=== PATIENT | female | born 1990 | race African-American/Black ===

== ENCOUNTER 2016-11-02 09:41 | Emergency (ER) | payer OTHER ==
[~2016-11-02] VITALS: Ht 167.6 cm; Wt 51.0 kg
[~2016-11-02 09:41] MED LIST: ALBU25PO2; ALPR0.2582
[2016-11-02] MEDS ORDERED: ALBUTEROL (0.083%) 2.5MG/3ML NEB HHN ONE (11:45)
[2016-11-02 12:24] LABS: BASOPHILS % 0.5 % (0.0-2.0); EOSINOPHILS % 0.4 % (0.0-5.0); HEMATOCRIT. 37.7 % (36.0-48.0); HEMOGLOBIN. 12.5 g/dL (12.0-16.0); LYMPHOCYTES % 29.6 % (20.0-50.0); MEAN CORPUSCULAR HEMOGLOBIN 29.1 pg (28.0-32.0); MEAN CORPUSCULAR VOLUME 88.1 fL (81.0-99.0); MONOCYTES % 6.6 % (2.0-8.0); NEUTROPHILS % 62.9 % (40.0-76.0); PLATELET 295 x1000/uL (130-400); RED BLOOD CELL COUNT 4.28 mill/uL (4.2-5.4); RED CELL DISTRIBUTION WIDTH 14.7 % (11.6-14.6); WHITE BLOOD COUNT 5.8 x1000/uL (4.5-11.0)
[2016-11-02 12:28] LABS: CHLORIDE 104 mEq/L (98-107); INDEX HEMOLYSI 1 (1-3); INDEX ICTERIC 1 (1-4); INDEX LIPEMIC 1 (1-3)
[2016-11-02 12:30] LABS: INR 1.2; PROTHROMBIN TIME 12.6 sec
[2016-11-02 12:37] LABS: CLARITY URINE CLEAR (CLEAR); COLOR URINE DARK YELLOW (YELLOW); GLUCOSE URINE NEGATIVE (NEGATIVE); KETONES URINE NEGATIVE (NEGATIVE); LEUKOCYTE ESTERASE URINE NEGATIVE (NEGATIVE); NITRITE URINE NEGATIVE (NEGATIVE); OCCULT BLOOD URINE NEGATIVE (NEGATIVE); PH URINE 7.5 (4.5-8.0); PROTEIN URINE NEGATIVE (NEGATIVE); SPECIFIC GRAVITY URINE 1.022 (1.005-1.030); UROBILINOGEN URINE 0.2 E.U./dL (0.2-1.0)
[2016-11-02 12:44] LABS: ANION GAP 12; CALCIUM 8.9 mg/dL (8.5-10.1); CARBON DIOXIDE 25 mEq/L (21-32); UREA NITROGEN BLOOD 5 mg/dL (7-21); eGFR > 60 mL/min (>60)
[2016-11-02 12:52] LABS: B-HCG QUANTITATIVE 84631 mIU/mL (<3)
[2016-11-02 12:57] LABS: *AMPHETAMINES SCREEN URINE NEGATIVE (NEGATIVE); *BARBITURATES SCREEN URINE NEGATIVE (NEGATIVE); *BENZODIAZEPINES SCREEN URINE NEGATIVE (NEGATIVE); *COCAINE SCREEN URINE NEGATIVE (NEGATIVE); ECSTASY MDMA SCREEN URINE NEGATIVE (NEGATIVE); METHADONE URINE SCREEN NEGATIVE (NEGATIVE); OPIATES URINE SCREEN NEGATIVE (NEGATIVE); PHENCYCLIDINE URINE SCREEN NEGATIVE (NEGATIVE)
[2016-11-02 12:59] LABS: CANNABINOID URINE SCREEN PRESUMTIVE POSITIVE (NEGATIVE)
[2016-11-02 13:30] VITALS: BP 122/60
== END 2016-11-02 15:30 | disposition home or self-care (01) ==
LOC: ER 12:15
DX: O20.0 Threatened abortion (principal); Z88.0 Allergy status to penicillin; Z79.899 Other long term (current) drug therapy; J45.909 Unspecified asthma, uncomplicated; Z87.891 Personal history of nicotine dependence; Z91.018 Allergy to other foods; O34.81 Maternal care for other abnormalities of pelvic organs, first trimester; N83.202 Unspecified ovarian cyst, left side; Z3A.09 9 weeks gestation of pregnancy
CPT/HCPCS: 36415; 76801; 76817; 80048; 80305; 81003; 81025; 84702; 85025; 85610; 94640; 99285; J7611; Z7610

== ENCOUNTER 2016-11-11 05:06 | Emergency (ER) | payer OTHER ==
[~2016-11-11] VITALS: Ht 167.6 cm; Wt 53.0 kg
[2016-11-11] MEDS ORDERED: SODIUM CHLORIDE 0.9% 1,000 ML IV ONE (05:52)
[2016-11-11] MEDS ORDERED: MORPHINE SULFATE 4 MG/ML CPJ (NOT FOR IM USE) IV ONE (06:00)
[2016-11-11] MEDS ORDERED: ONDANSETRON HCL 4MG/2ML VIAL IV ONE (06:00)
[2016-11-11 06:21] LABS: BASOPHILS % 0.5 % (0.0-2.0); EOSINOPHILS % 0.7 % (0.0-5.0); HEMATOCRIT. 37.3 % (36.0-48.0); HEMOGLOBIN. 12.4 g/dL (12.0-16.0); LYMPHOCYTES % 44.6 % (20.0-50.0); MEAN CORPUSCULAR HEMOGLOBIN 29.3 pg (28.0-32.0); MEAN CORPUSCULAR HGB CONC 33.1 g/dL (31.0-37.0); MEAN CORPUSCULAR VOLUME 88.5 fL (81.0-99.0); MEAN PLATELET VOLUME 7.4 fl (7.4-10.4); NEUTROPHILS % 47.2 % (40.0-76.0); PLATELET 270 x1000/uL (130-400); RED BLOOD CELL COUNT 4.22 mill/uL (4.2-5.4); RED CELL DISTRIBUTION WIDTH 14.5 % (11.6-14.6); WHITE BLOOD COUNT 5.6 x1000/uL (4.5-11.0)
[2016-11-11 06:28] LABS: INR 1.1; PROTHROMBIN TIME 11.8 sec
[2016-11-11 06:42] LABS: ALANINE AMINOTRANSFERASE 9 IU/L (13-61); ALBUMIN 3.5 g/dL (3.4-5.0); ANION GAP 12; CALCIUM 8.9 mg/dL (8.5-10.1); CARBON DIOXIDE 26 mEq/L (21-32); CHLORIDE 106 mEq/L (98-107); INDEX HEMOLYSI 1 (1-3); INDEX ICTERIC 1 (1-4); INDEX LIPEMIC 1 (1-3); UREA NITROGEN BLOOD 6 mg/dL (7-21); eGFR > 60 mL/min (>60)
[2016-11-11 06:49] LABS: B-HCG QUANTITATIVE 76373 mIU/mL (<3)
[2016-11-11 07:01] LABS: *AMPHETAMINES SCREEN URINE NEGATIVE (NEGATIVE); *BARBITURATES SCREEN URINE NEGATIVE (NEGATIVE); *BENZODIAZEPINES SCREEN URINE NEGATIVE (NEGATIVE); *COCAINE SCREEN URINE NEGATIVE (NEGATIVE); ECSTASY MDMA SCREEN URINE NEGATIVE (NEGATIVE); METHADONE URINE SCREEN NEGATIVE (NEGATIVE); PHENCYCLIDINE URINE SCREEN NEGATIVE (NEGATIVE)
[2016-11-11 07:03] LABS: CANNABINOID URINE SCREEN PRESUMTIVE POSITIVE (NEGATIVE); OPIATES URINE SCREEN PRESUMTIVE POSITIVE (NEGATIVE)
[2016-11-11] MEDS ORDERED: AZITHROMYCIN 500 MG TABLET PO SCH (09:00)
[2016-11-11 09:19] VITALS: BP 128/73
[2016-11-13 04:56] LABS: CHLAMYDIA TRACHOMATIS NAA Negative (Negative); NEISSERIA GONORRHOEAE NAA Negative (Negative)
== END 2016-11-11 09:27 | disposition home or self-care (01) ==
LOC: ER 05:10
DX: O20.0 Threatened abortion (principal); O23.591 Infection of other part of genital tract in pregnancy, first trimester; N76.0 Acute vaginitis; B96.89 Other specified bacterial agents as the cause of diseases classified elsewhere; R10.30 Lower abdominal pain, unspecified; O99.321 Drug use complicating pregnancy, first trimester; F12.10 Cannabis abuse, uncomplicated; O99.331 Smoking (tobacco) complicating pregnancy, first trimester; Z3A.11 11 weeks gestation of pregnancy; Z88.0 Allergy status to penicillin; Z91.018 Allergy to other foods
CPT/HCPCS: 36415; 76801; 80053; 80305; 81025; 84702; 85025; 85610; 86850; 86900; 86901; 87491; 87591; 96361; 96374; 96375; 99285; J2270; J2405; Z7610; J7030

== ENCOUNTER 2016-11-17 17:29 | Emergency (ER) | payer OTHER ==
[~2016-11-17] VITALS: Ht 167.6 cm; Wt 52.0 kg
[2016-11-17] MEDS ORDERED: PREN-88 PO (17:55)
[2016-11-17] MEDS ORDERED: SODIUM CHLORIDE 0.9% 1,000 ML IV ONE (18:44)
[2016-11-17] MEDS ORDERED: ONDANSETRON HCL 4MG/2ML VIAL IV ONE (18:45)
[2016-11-17 19:20] LABS: BASOPHILS % 0.3 % (0.0-2.0); EOSINOPHILS % 0.9 % (0.0-5.0); HEMATOCRIT. 35.8 % (36.0-48.0); LYMPHOCYTES % 32.1 % (20.0-50.0); MEAN CORPUSCULAR HEMOGLOBIN 29.4 pg (28.0-32.0); MEAN CORPUSCULAR HGB CONC 33.5 g/dL (31.0-37.0); MEAN CORPUSCULAR VOLUME 87.7 fL (81.0-99.0); MEAN PLATELET VOLUME 7.4 fl (7.4-10.4); MONOCYTES % 7.6 % (2.0-8.0); NEUTROPHILS % 59.1 % (40.0-76.0); PLATELET 266 x1000/uL (130-400); RED BLOOD CELL COUNT 4.08 mill/uL (4.2-5.4); RED CELL DISTRIBUTION WIDTH 14.3 % (11.6-14.6); WHITE BLOOD COUNT 7.2 x1000/uL (4.5-11.0)
[2016-11-17 19:29] LABS: ALBUMIN 3.6 g/dL (3.4-5.0); ANION GAP 13; CALCIUM 8.8 mg/dL (8.5-10.1); CARBON DIOXIDE 26 mEq/L (21-32); CHLORIDE 105 mEq/L (98-107); INDEX HEMOLYSI 1 (1-3); INDEX ICTERIC 1 (1-4); INDEX LIPEMIC 1 (1-3); UREA NITROGEN BLOOD 7 mg/dL (7-21)
[2016-11-17 19:30] LABS: D-DIMER < 0.19 mg/L FEU (<0.50); INR 1.1; PROTHROMBIN TIME 11.4 sec
[2016-11-17] MEDS ORDERED: ALBUTEROL 6.7GM HFA INHALER ORI ONE (19:30)
[2016-11-17] MEDS ORDERED: MAGNESIUM 1 G PREMIX 100 ML IV ONE (19:30)
[2016-11-17 19:32] LABS: ALANINE AMINOTRANSFERASE 9 IU/L (13-61)
[2016-11-17 19:36] LABS: eGFR > 60 mL/min (>60)
[2016-11-17 19:50] LABS: *AMPHETAMINES SCREEN URINE NEGATIVE (NEGATIVE); *BARBITURATES SCREEN URINE NEGATIVE (NEGATIVE); *BENZODIAZEPINES SCREEN URINE NEGATIVE (NEGATIVE); *COCAINE SCREEN URINE NEGATIVE (NEGATIVE); ECSTASY MDMA SCREEN URINE NEGATIVE (NEGATIVE); METHADONE URINE SCREEN NEGATIVE (NEGATIVE); OPIATES URINE SCREEN NEGATIVE (NEGATIVE); PHENCYCLIDINE URINE SCREEN NEGATIVE (NEGATIVE)
[2016-11-17 19:50] LABS: B-HCG QUANTITATIVE 58456 mIU/mL (<3)
[2016-11-17 19:52] LABS: CANNABINOID URINE SCREEN PRESUMTIVE POSITIVE (NEGATIVE)
[2016-11-17 21:05] VITALS: BP 115/75
== END 2016-11-17 21:06 | disposition home or self-care (01) ==
LOC: ER 17:31
DX: O26.891 Other specified pregnancy related conditions, first trimester (principal); J45.901 Unspecified asthma with (acute) exacerbation; Z88.0 Allergy status to penicillin; Z3A.12 12 weeks gestation of pregnancy; Z91.018 Allergy to other foods
CPT/HCPCS: 36415; 76801; 76817; 80053; 80305; 84702; 85025; 85379; 85610; 86850; 86900; 86901; 96374; 96375; 99285; J2405; J3475; J7030; Z7610; J7611

== ENCOUNTER 2016-12-02 03:23 | Emergency (ER) | payer MEDICAID, OTHER ==
[~2016-12-02] VITALS: Ht 167.6 cm; Wt 53.6 kg
[~2016-12-02 03:23] MED LIST changes: -ALPR0.2582; +PREN-88 PO
[2016-12-02 06:02] VITALS: BP 95/53
[2016-12-02] MEDS ORDERED: SODIUM CHLORIDE 0.9% 1,000 ML IV ONE (06:10)
[2016-12-02] MEDS ORDERED: ONDANSETRON HCL 4MG/2ML VIAL IV ONE (06:15)
[2016-12-02 06:33] LABS: BASOPHILS % 0.5 % (0.0-2.0); EOSINOPHILS % 0.6 % (0.0-5.0); HEMATOCRIT. 34.1 % (36.0-48.0); HEMOGLOBIN. 11.6 g/dL (12.0-16.0); LYMPHOCYTES % 8.5 % (20.0-50.0); MEAN CORPUSCULAR HEMOGLOBIN 29.5 pg (28.0-32.0); MEAN CORPUSCULAR VOLUME 86.9 fL (81.0-99.0); MEAN PLATELET VOLUME 7.2 fl (7.4-10.4); MONOCYTES % 10.4 % (2.0-8.0); PLATELET 221 x1000/uL (130-400); RED BLOOD CELL COUNT 3.92 mill/uL (4.2-5.4); WHITE BLOOD COUNT 7.3 x1000/uL (4.5-11.0)
[2016-12-02 06:47] LABS: CREATINE KINASE 55 IU/L (26-192); CREATINE KINASE MB FRACTION 0.7 ng/mL (0.5-3.6); INDEX HEMOLYSI 1 (1-3); TROPONIN I < 0.02 ng/mL (0.00-0.04)
[2016-12-02 06:54] LABS: ANION GAP 12; CARBON DIOXIDE 25 mEq/L (21-32); CHLORIDE 104 mEq/L (98-107)
[2016-12-02 06:55] LABS: ALANINE AMINOTRANSFERASE 14 IU/L (13-61); ALBUMIN 3.1 g/dL (3.4-5.0); CALCIUM 8.4 mg/dL (8.5-10.1); INDEX HEMOLYSI 1 (1-3); INDEX ICTERIC 1 (1-4); INDEX LIPEMIC 1 (1-3); UREA NITROGEN BLOOD 5 mg/dL (7-21); eGFR > 60 mL/min (>60)
[2016-12-02 07:01] LABS: CLARITY URINE CLEAR (CLEAR); COLOR URINE YELLOW (YELLOW); GLUCOSE URINE NEGATIVE (NEGATIVE); KETONES URINE NEGATIVE (NEGATIVE); LEUKOCYTE ESTERASE URINE NEGATIVE (NEGATIVE); NITRITE URINE NEGATIVE (NEGATIVE); OCCULT BLOOD URINE NEGATIVE (NEGATIVE); PROTEIN URINE NEGATIVE (NEGATIVE); SPECIFIC GRAVITY URINE 1.012 (1.005-1.030); UROBILINOGEN URINE 0.2 E.U./dL (0.2-1.0)
[2016-12-02 07:02] LABS: B-HCG QUANTITATIVE 32575 mIU/mL (<3)
== END 2016-12-02 08:43 | disposition home or self-care (01) ==
LOC: ER 05:02
DX: O21.0 Mild hyperemesis gravidarum (principal); J06.9 Acute upper respiratory infection, unspecified; J45.909 Unspecified asthma, uncomplicated; Z91.010 Allergy to peanuts; Z88.0 Allergy status to penicillin; Z91.018 Allergy to other foods; Z79.899 Other long term (current) drug therapy; Z87.891 Personal history of nicotine dependence; Z3A.14 14 weeks gestation of pregnancy
CPT/HCPCS: 36415; 76815; 80053; 81003; 81025; 82550; 82553; 84484; 84702; 85025; 86850; 86900; 86901; 93005; 96374; 99285; J2405; Z7610; J7030

== ENCOUNTER 2016-12-12 19:18 | Emergency (ER) | payer MEDICAID | END 2016-12-13 00:43 | disposition left against medical advice (07) | LOC: ER 21:48 | DX: R10.9 Unspecified abdominal pain (principal); Z53.21 Procedure and treatment not carried out due to patient leaving prior to being seen by health care provider ==

== ENCOUNTER 2016-12-12 21:11 | Emergency (ER) | payer MEDICAID ==
[~2016-12-12] VITALS: Ht 167.6 cm; Wt 55.0 kg
[2016-12-12] MEDS ORDERED: IPRATROPIUM BROMIDE (0.02%) 0.5MG/2.5ML NEB HHN STA (21:28)
[2016-12-12] MEDS ORDERED: MORPHINE SULFATE 4 MG/ML CPJ (NOT FOR IM USE) IV STA (21:28)
[2016-12-12] MEDS ORDERED: METHYLPREDNISOLONE SOD SUCC 125 MG/2 ML VIAL IV STA (21:28)
[2016-12-12] MEDS ORDERED: ONDANSETRON HCL 4MG/2ML VIAL IV STA (21:28)
[2016-12-12] MEDS ORDERED: ALBUTEROL (0.083%) 2.5MG/3ML NEB HHN STA (21:28)
[2016-12-12] MEDS ORDERED: SODIUM CHLORIDE 0.9% 1,000 ML IV ONE (21:28)
[2016-12-12] MEDS ORDERED: MAGNESIUM 2 G PREMIX 50 ML IV ONE (21:30)
[2016-12-12 21:44] LABS: CLARITY URINE CLOUDY (CLEAR); COLOR URINE YELLOW (YELLOW); GLUCOSE URINE NEGATIVE (NEGATIVE); KETONES URINE NEGATIVE (NEGATIVE); LEUKOCYTE ESTERASE URINE TRACE (NEGATIVE); NITRITE URINE NEGATIVE (NEGATIVE); OCCULT BLOOD URINE TRACE (NEGATIVE); PH URINE 5.5 (4.5-8.0); PROTEIN URINE NEGATIVE (NEGATIVE); SPECIFIC GRAVITY URINE 1.028 (1.005-1.030); UROBILINOGEN URINE 0.2 E.U./dL (0.2-1.0)
[2016-12-12 21:46] LABS: BASOPHILS % 0.7 % (0.0-2.0); EOSINOPHILS % 0.7 % (0.0-5.0); HEMATOCRIT. 36.2 % (36.0-48.0); HEMOGLOBIN. 12.3 g/dL (12.0-16.0); LYMPHOCYTES % 25.7 % (20.0-50.0); MEAN CORPUSCULAR HEMOGLOBIN 29.6 pg (28.0-32.0); MEAN CORPUSCULAR HGB CONC 34.1 g/dL (31.0-37.0); MEAN CORPUSCULAR VOLUME 86.9 fL (81.0-99.0); MEAN PLATELET VOLUME 7.1 fl (7.4-10.4); MONOCYTES % 6.8 % (2.0-8.0); NEUTROPHILS % 66.1 % (40.0-76.0); PLATELET 282 x1000/uL (130-400); RED BLOOD CELL COUNT 4.16 mill/uL (4.2-5.4); RED CELL DISTRIBUTION WIDTH 13.7 % (11.6-14.6); WHITE BLOOD COUNT 7.7 x1000/uL (4.5-11.0)
[2016-12-12 21:51] LABS: INR 1.1; PARTIAL THROMBOPLASTIN TIME 24.7 sec (24.0-34.0); PROTHROMBIN TIME 11.1 sec
[2016-12-12 21:55] LABS: ALANINE AMINOTRANSFERASE 9 IU/L (13-61); ALBUMIN 3.1 g/dL (3.4-5.0); ANION GAP 15; CARBON DIOXIDE 22 mEq/L (21-32); CHLORIDE 106 mEq/L (98-107); ETHANOL BLOOD < 10 mg/dL; INDEX HEMOLYSI 1 (1-3); INDEX ICTERIC 1 (1-4); INDEX LIPEMIC 1 (1-3); LIPASE 141 IU/L (73-393); UREA NITROGEN BLOOD 6 mg/dL (7-21); eGFR > 60 mL/min (>60)
[2016-12-12 21:59] LABS: NT PRO B-TYPE NATRIURETIC PEP 38 pg/mL (5-125); TROPONIN I < 0.02 ng/mL (0.00-0.04)
[2016-12-12 22:00] LABS: *AMPHETAMINES SCREEN URINE NEGATIVE (NEGATIVE); *BARBITURATES SCREEN URINE NEGATIVE (NEGATIVE); *BENZODIAZEPINES SCREEN URINE NEGATIVE (NEGATIVE); *COCAINE SCREEN URINE NEGATIVE (NEGATIVE); ECSTASY MDMA SCREEN URINE NEGATIVE (NEGATIVE); METHADONE URINE SCREEN NEGATIVE (NEGATIVE); OPIATES URINE SCREEN NEGATIVE (NEGATIVE); PHENCYCLIDINE URINE SCREEN NEGATIVE (NEGATIVE)
[2016-12-12 22:01] LABS: CANNABINOID URINE SCREEN PRESUMTIVE POSITIVE (NEGATIVE)
[2016-12-12 22:02] LABS: CALCIUM OXALATE CRYSTALS URINE 1+ /lpf
[2016-12-12 22:04] LABS: BACTERIA URINE 2+
[2016-12-12 22:06] LABS: SQUAMOUS EPITHELIAL CELL URINE 2+ /lpf (RARE/1+)
[2016-12-12] MEDS ORDERED: NITROFURANTOIN 100MG M/M CAPSULE PO NR (22:15)
[2016-12-13 01:17] VITALS: BP 117/78
== END 2016-12-13 01:17 | disposition home or self-care (01) ==
LOC: ER 21:50
DX: O23.41 Unspecified infection of urinary tract in pregnancy, first trimester (principal); O21.0 Mild hyperemesis gravidarum; O26.891 Other specified pregnancy related conditions, first trimester; Z88.0 Allergy status to penicillin; Z91.018 Allergy to other foods; Z79.899 Other long term (current) drug therapy; J45.909 Unspecified asthma, uncomplicated; Z82.49 Family history of ischemic heart disease and other diseases of the circulatory system; Z3A.12 12 weeks gestation of pregnancy
CPT/HCPCS: 36415; 80053; 80305; 81001; 81025; 83690; 83880; 84484; 85025; 85610; 85730; 93005; 94640; 96361; 96365; 96375; 99285; G0482; J2270; J2405; J2930; J3475; J7030; J7611; Z7610

== ENCOUNTER 2016-12-31 17:54 | Emergency (ER) | payer MEDICAID ==
[~2016-12-31] VITALS: Ht 165.1 cm; Wt 55.0 kg
[2016-12-31 17:58] VITALS: BP 112/58
== END 2016-12-31 20:45 | disposition left against medical advice (07) ==
LOC: ER 17:55
DX: R51 Headache (principal); Z53.21 Procedure and treatment not carried out due to patient leaving prior to being seen by health care provider

== ENCOUNTER 2017-02-06 16:27 | Observation (INO) | payer MEDICAID ==
[~2017-02-06] VITALS: Ht 167.6 cm; Wt 63.5 kg
[2017-02-06] MEDS ORDERED: FERR-63 PO (17:06)
[2017-02-06] MEDS ORDERED: ONDANSETRON HCL 4MG/2ML VIAL IV NR (17:30)
[2017-02-06] MEDS ORDERED: MVI, ADULT NO.1 10 ML in SODIUM CHLORIDE 0.9% 1,000 ML IV SCH ×2 (18:00)
[2017-02-06] MEDS ORDERED: MVI, ADULT NO.1 10 ML, THIAMINE HCL 100 MG, FOLIC ACID 1 MG in SODIUM CHLORIDE 0.9% 1,0... IV ONE ×4 (18:00)
[2017-02-06 18:23] LABS: CLARITY URINE CLEAR (CLEAR); COLOR URINE YELLOW (YELLOW); KETONES URINE NEGATIVE (NEGATIVE); LEUKOCYTE ESTERASE URINE NEGATIVE (NEGATIVE); NITRITE URINE NEGATIVE (NEGATIVE); OCCULT BLOOD URINE TRACE (NEGATIVE); PH URINE 5.5 (4.5-8.0); PROTEIN URINE NEGATIVE (NEGATIVE); SPECIFIC GRAVITY URINE 1.021 (1.005-1.030); UROBILINOGEN URINE 0.2 E.U./dL (0.2-1.0)
[2017-02-06 18:25] LABS: CHLORIDE 105 mEq/L (98-107)
[2017-02-06 18:33] LABS: CARBON DIOXIDE 26 mEq/L (21-32)
== END 2017-02-06 19:35 | disposition home or self-care (01) ==
LOC: L&D 16:27
PROVIDERS: ADMIT Specialist; ATTEND Specialist
DX: O21.2 Late vomiting of pregnancy (principal); O26.892 Other specified pregnancy related conditions, second trimester; R10.10 Upper abdominal pain, unspecified; R10.30 Lower abdominal pain, unspecified; R51 Headache; Z3A.23 23 weeks gestation of pregnancy
CPT/HCPCS: 36415; 80053; 81001; 96365; 96375; 99281; G0378; J2405; J3411; J3490; J7040; 96360; 96361; J7030

== ENCOUNTER 2017-04-27 15:39 | Emergency (ER) | payer MEDICAID ==
[~2017-04-27] VITALS: Ht 167.6 cm; Wt 70.0 kg
[~2017-04-27 15:39] MED LIST changes: +FERR-63 PO
[2017-04-27] MEDS ORDERED: FLUORESCEIN SODIUM 1MG/STRIP OP ONE (16:45)
[2017-04-27] MEDS ORDERED: TETRACAINE 0.5% OPHTH DROPS 4ML OP ONE (16:45)
[2017-04-27 17:50] VITALS: BP 116/75
== END 2017-04-27 18:09 | disposition home or self-care (01) ==
LOC: EDSTATUS 15:39 → ER 15:57
DX: O26.893 Other specified pregnancy related conditions, third trimester (principal); H53.8 Other visual disturbances; H57.11 Ocular pain, right eye; Z3A.36 36 weeks gestation of pregnancy
CPT/HCPCS: 99283; Z7610

== ENCOUNTER 2017-06-08 03:53 | Emergency (ER) | payer MEDICAID ==
[~2017-06-08] VITALS: Ht 167.6 cm; Wt 66.0 kg
[~2017-06-08 03:53] MED LIST changes: -FERR-63 PO; -PREN-88 PO
[2017-06-08 03:55] VITALS: BP 140/80
[2017-06-08] MEDS ORDERED: KETOROLAC 30MG/ML VIAL IM ONE (05:15)
[2017-06-08 05:24] LABS: BASOPHILS % 0.7 % (0.0-2.0); EOSINOPHILS % 1.5 % (0.0-5.0); HEMOGLOBIN. 11.1 g/dL (12.0-16.0); LYMPHOCYTES % 32.6 % (20.0-50.0); MEAN CORPUSCULAR HEMOGLOBIN 27.5 pg (28.0-32.0); MEAN CORPUSCULAR VOLUME 81.9 fL (81.0-99.0); MEAN PLATELET VOLUME 6.4 fl (7.4-10.4); MONOCYTES % 8.3 % (2.0-8.0); NEUTROPHILS % 56.9 % (40.0-76.0); PLATELET 375 x1000/uL (130-400); RED BLOOD CELL COUNT 4.03 mill/uL (4.2-5.4); RED CELL DISTRIBUTION WIDTH 15.1 % (11.6-14.6)
[2017-06-08 05:31] LABS: CHLORIDE 110 mEq/L (98-107)
[2017-06-08 05:40] LABS: B-HCG QUANTITATIVE 18 mIU/mL (<3); CARBON DIOXIDE 22 mEq/L (21-32)
[2017-06-08] MEDS ORDERED: ONDANSETRON 4MG ODT PO NR (06:15)
== END 2017-06-08 06:20 | disposition home or self-care (01) ==
LOC: ER 03:53
DX: Z39.2 Encounter for routine postpartum follow-up (principal); N93.9 Abnormal uterine and vaginal bleeding, unspecified; R03.0 Elevated blood-pressure reading, without diagnosis of hypertension; F17.210 Nicotine dependence, cigarettes, uncomplicated; Z88.0 Allergy status to penicillin; Z91.018 Allergy to other foods
CPT/HCPCS: 36415; 76856; 80053; 84702; 85025; 86850; 86900; 99285; J1885; Q0162

== ENCOUNTER 2017-09-13 20:38 | Emergency (ER) | payer MEDICAID, OTHER ==
[~2017-09-13] VITALS: Ht 167.6 cm; Wt 58.0 kg
[2017-09-13 21:42] LABS: CLARITY URINE CLEAR (CLEAR); COLOR URINE YELLOW (YELLOW); KETONES URINE TRACE (NEGATIVE); LEUKOCYTE ESTERASE URINE NEGATIVE (NEGATIVE); NITRITE URINE NEGATIVE (NEGATIVE); OCCULT BLOOD URINE NEGATIVE (NEGATIVE); PH URINE 6.5 (4.5-8.0); PROTEIN URINE NEGATIVE (NEGATIVE)
[2017-09-13] MEDS ORDERED: ACETAMINOPHEN 325MG TABLET PO STA (22:33)
[2017-09-13 23:25] LABS: BASOPHILS % 0.5 % (0.0-2.0); EOSINOPHILS % 0.7 % (0.0-5.0); HEMATOCRIT. 33.9 % (36.0-48.0); MEAN CORPUSCULAR HEMOGLOBIN 25.8 pg (28.0-32.0); MEAN CORPUSCULAR VOLUME 79.4 fL (81.0-99.0); MEAN PLATELET VOLUME 7.5 fl (7.4-10.4); NEUTROPHILS % 43.8 % (40.0-76.0); PLATELET 344 x1000/uL (130-400); RED BLOOD CELL COUNT 4.27 mill/uL (4.2-5.4); RED CELL DISTRIBUTION WIDTH 14.5 % (11.6-14.6)
[2017-09-13 23:28] VITALS: BP 128/82
[2017-09-13 23:34] LABS: HCG SCREEN NEGATIVE
[2017-09-13 23:41] LABS: CHLORIDE 106 mEq/L (98-107)
[2017-09-16 04:12] LABS: CHLAMYDIA TRACHOMATIS NAA Negative (Negative); NEISSERIA GONORRHOEAE NAA Negative (Negative)
== END 2017-09-14 01:15 | disposition home or self-care (01) ==
LOC: ER 21:36
DX: R10.30 Lower abdominal pain, unspecified (principal); J45.909 Unspecified asthma, uncomplicated; Z88.0 Allergy status to penicillin; Z87.891 Personal history of nicotine dependence; Z91.018 Allergy to other foods
CPT/HCPCS: 36415; 80053; 81003; 83690; 84703; 85025; 87491; 87591; 93005; 99285

== ENCOUNTER 2017-10-29 18:26 | Emergency (ER) | payer MEDICAID, OTHER ==
[~2017-10-29] VITALS: Ht 165.1 cm; Wt 58.0 kg
[2017-10-30 01:30] VITALS: BP 115/66
[2017-10-30] MEDS ORDERED: ACETAMINOPHEN 325MG TABLET PO ONE (01:30)
== END 2017-10-30 03:02 | disposition home or self-care (01) ==
LOC: ER 19:16
DX: S63.8X1A Sprain of other part of right wrist and hand, initial encounter (principal); J45.909 Unspecified asthma, uncomplicated; Z88.0 Allergy status to penicillin; Z91.018 Allergy to other foods; W10.8XXA Fall (on) (from) other stairs and steps, initial encounter; Y93.02 Activity, running; Y92.89 Other specified places as the place of occurrence of the external cause; Y99.8 Other external cause status
CPT/HCPCS: 29130; 73130; 81025; 99284

== ENCOUNTER 2018-02-11 14:56 | Emergency (ER) | payer SELFPAY ==
[~2018-02-11] VITALS: Ht 165.1 cm; Wt 54.0 kg
[2018-02-11] MEDS: ACETAMINOPHEN 325MG TABLET PO ONE ×2 (16:57→17:01)
[2018-02-11 17:54] VITALS: BP 119/68
== END 2018-02-11 17:56 | disposition home or self-care (01) ==
LOC: ER 15:06
DX: S09.8XXA Other specified injuries of head, initial encounter (principal); M79.642 Pain in left hand; Y35.893A Legal intervention involving other specified means, suspect injured, initial encounter; Y93.89 Activity, other specified; Y92.410 Unspecified street and highway as the place of occurrence of the external cause; F17.210 Nicotine dependence, cigarettes, uncomplicated; Z88.0 Allergy status to penicillin; Z91.018 Allergy to other foods
CPT/HCPCS: 70450; 72125; 73130; 81025; 99284

== ENCOUNTER 2018-11-22 13:46 | Emergency (ER) | payer MEDICAID, OTHER ==
[~2018-11-22] VITALS: Ht 165.1 cm; Wt 60.0 kg
[2018-11-22 17:15] LABS: BASOPHILS % 0.7 % (0.0-2.0); EOSINOPHILS % 0.6 % (0.0-5.0); HEMATOCRIT. 37.4 % (36.0-48.0); HEMOGLOBIN. 12.4 g/dL (12.0-16.0); LYMPHOCYTES % 30.6 % (20.0-50.0); MEAN CORPUSCULAR HEMOGLOBIN 29.6 pg (28.0-32.0); MEAN CORPUSCULAR VOLUME 89.4 fL (81.0-99.0); MEAN PLATELET VOLUME 7.2 fl (7.4-10.4); MONOCYTES % 6.5 % (2.0-8.0); NEUTROPHILS % 61.6 % (40.0-76.0); PLATELET 278 x1000/uL (130-400); RED BLOOD CELL COUNT 4.19 mill/uL (4.2-5.4)
[2018-11-22 17:16] LABS: CHLORIDE 106 mEq/L (98-107)
[2018-11-22 17:39] LABS: B-HCG QUANTITATIVE 35450 mIU/mL (<3)
[2018-11-22 18:45] LABS: CLARITY URINE CLEAR (CLEAR); COLOR URINE YELLOW (YELLOW); KETONES URINE NEGATIVE (NEGATIVE); LEUKOCYTE ESTERASE URINE NEGATIVE (NEGATIVE); NITRITE URINE NEGATIVE (NEGATIVE); OCCULT BLOOD URINE NEGATIVE (NEGATIVE); PH URINE 6.5 (4.5-8.0); PROTEIN URINE NEGATIVE (NEGATIVE); SPECIFIC GRAVITY URINE 1.024 (1.005-1.030); UROBILINOGEN URINE 0.2 E.U./dL (0.2-1.0)
[2018-11-22 18:49] VITALS: BP 102/60
== END 2018-11-22 18:51 | disposition home or self-care (01) ==
LOC: ER 14:15
DX: O20.9 Hemorrhage in early pregnancy, unspecified (principal); O26.891 Other specified pregnancy related conditions, first trimester; M79.10 Myalgia, unspecified site; R10.30 Lower abdominal pain, unspecified; J45.909 Unspecified asthma, uncomplicated; Z3A.01 Less than 8 weeks gestation of pregnancy; Z88.0 Allergy status to penicillin; Z79.899 Other long term (current) drug therapy; Z91.018 Allergy to other foods; V89.2XXA Person injured in unspecified motor-vehicle accident, traffic, initial encounter; Y93.89 Activity, other specified; Y92.89 Other specified places as the place of occurrence of the external cause; Y99.8 Other external cause status
CPT/HCPCS: 36415; 76801; 80048; 81025; 84702; 86850; 86900; 99284

== ENCOUNTER 2019-01-03 15:23 | Emergency (ER) | payer MEDICAID ==
[~2019-01-03] VITALS: Ht 167.6 cm; Wt 52.0 kg
[2019-01-03] MEDS ORDERED: SODIUM CHLORIDE 0.9% 1,000 ML IV ONE (16:14)
[2019-01-03 16:38] LABS: CHLORIDE 105 mEq/L (98-107)
[2019-01-03 16:40] LABS: BASOPHILS % 0.4 % (0.0-2.0); EOSINOPHILS % 0.6 % (0.0-5.0); HEMATOCRIT. 38.7 % (36.0-48.0); HEMOGLOBIN. 13.2 g/dL (12.0-16.0); LYMPHOCYTES % 31.7 % (20.0-50.0); MEAN CORPUSCULAR HEMOGLOBIN 30.4 pg (28.0-32.0); MEAN CORPUSCULAR VOLUME 89.1 fL (81.0-99.0); MEAN PLATELET VOLUME 7.5 fl (7.4-10.4); MONOCYTES % 7.8 % (2.0-8.0); NEUTROPHILS % 59.5 % (40.0-76.0); PLATELET 319 x1000/uL (130-400); RED BLOOD CELL COUNT 4.35 mill/uL (4.2-5.4)
[2019-01-03 16:59] LABS: B-HCG QUANTITATIVE 63877 mIU/mL (<3)
[2019-01-03 17:00] LABS: CLARITY URINE CLEAR (CLEAR); COLOR URINE YELLOW (YELLOW); KETONES URINE NEGATIVE (NEGATIVE); LEUKOCYTE ESTERASE URINE NEGATIVE (NEGATIVE); NITRITE URINE NEGATIVE (NEGATIVE); OCCULT BLOOD URINE TRACE (NEGATIVE); PH URINE 5.5 (4.5-8.0); PROTEIN URINE NEGATIVE (NEGATIVE); SPECIFIC GRAVITY URINE 1.024 (1.005-1.030); UROBILINOGEN URINE 0.2 E.U./dL (0.2-1.0)
[2019-01-03 18:30] VITALS: BP 115/65
== END 2019-01-03 18:48 | disposition home or self-care (01) ==
LOC: ER 15:23
DX: O20.0 Threatened abortion (principal); O99.511 Diseases of the respiratory system complicating pregnancy, first trimester; O99.331 Smoking (tobacco) complicating pregnancy, first trimester; Z3A.13 13 weeks gestation of pregnancy; F17.290 Nicotine dependence, other tobacco product, uncomplicated; Z91.010 Allergy to peanuts; Z88.0 Allergy status to penicillin; Z91.018 Allergy to other foods
CPT/HCPCS: 36415; 76801; 80053; 81003; 81025; 84702; 85025; 86850; 86900; 86901; 99284; 99406; J7030

== ENCOUNTER 2019-01-15 21:34 | Emergency (ER) | payer MEDICAID ==
[~2019-01-15] VITALS: Ht 167.6 cm; Wt 54.0 kg
[2019-01-16 03:35] VITALS: BP 109/73
== END 2019-01-16 03:46 | disposition left against medical advice (07) ==
LOC: ER 21:34
DX: O26.892 Other specified pregnancy related conditions, second trimester (principal); R10.0 Acute abdomen; R51 Headache; O99.332 Smoking (tobacco) complicating pregnancy, second trimester; F17.210 Nicotine dependence, cigarettes, uncomplicated; Z3A.15 15 weeks gestation of pregnancy
CPT/HCPCS: 81025; 99283; Z7610

== ENCOUNTER 2019-03-24 15:14 | Emergency (ER) | payer MEDICAID ==
[~2019-03-24] VITALS: Ht 170.2 cm; Wt 61.0 kg
[2019-03-24 17:55] VITALS: BP 108/67
== END 2019-03-24 19:32 | disposition left against medical advice (07) ==
LOC: ER 15:14
DX: Z53.21 Procedure and treatment not carried out due to patient leaving prior to being seen by health care provider (principal)

== ENCOUNTER 2019-05-22 10:22 | Emergency (ER) | payer MEDICAID ==
[~2019-05-22] VITALS: Ht 167.6 cm; Wt 66.0 kg
[2019-05-22 10:54] VITALS: BP 106/70
== END 2019-05-22 11:32 | disposition home or self-care (01) ==
LOC: ER 10:43
DX: O99.89 Other specified diseases and conditions complicating pregnancy, childbirth and the puerperium (principal); J02.9 Acute pharyngitis, unspecified; Z3A.33 33 weeks gestation of pregnancy
CPT/HCPCS: 99283

== ENCOUNTER 2019-06-23 19:07 | Observation (INO) | payer MEDICAID ==
[~2019-06-23] VITALS: Ht 167.6 cm; Wt 66.2 kg
[2019-06-23] MEDS ORDERED: DEXT 5%/LACTATED RINGERS 1,000 ML IV SCH (20:03)
[2019-06-23] MEDS ORDERED: PNV1TABL76 MT (20:05)
[2019-06-23] MEDS ORDERED: ACETAMINOPHEN 500MG TABLET PO NR (20:49)
== END 2019-06-23 22:00 | disposition home or self-care (01) ==
LOC: 8 EST LDRP 19:07
PROVIDERS: ADMIT Obstetrics & Gynecology; ATTEND Obstetrics & Gynecology
DX: O26.893 Other specified pregnancy related conditions, third trimester (principal); R10.30 Lower abdominal pain, unspecified; O21.2 Late vomiting of pregnancy; Z3A.37 37 weeks gestation of pregnancy
CPT/HCPCS: 99281; G0378; 96360

== ENCOUNTER 2019-06-25 04:01 | Observation (INO) | payer MEDICAID ==
[~2019-06-25] VITALS: Ht 167.6 cm; Wt 66.2 kg
[~2019-06-25 04:01] MED LIST changes: +PNV1TABL76 MT
[2019-06-25] MEDS ORDERED: FERR-71 MT (05:19)
[2019-06-25 05:52] LABS: CLARITY URINE CLEAR (CLEAR); COLOR URINE YELLOW (YELLOW); KETONES URINE NEGATIVE (NEGATIVE); LEUKOCYTE ESTERASE URINE 1+ (NEGATIVE); NITRITE URINE NEGATIVE (NEGATIVE); OCCULT BLOOD URINE 1+ (NEGATIVE); PH URINE 7.5 (4.5-8.0); PROTEIN URINE NEGATIVE (NEGATIVE); SPECIFIC GRAVITY URINE 1.009 (1.005-1.030); UROBILINOGEN URINE 0.2 E.U./dL (0.2-1.0)
[2019-06-25] MEDS: LACTATED RINGERS 1,000 ML IV SCH ×2 (05:53→07:22)
[2019-06-25] MEDS: TERBUTALINE SULFATE 1MG/ML VIAL SUBCUT PRN ×2 (06:02→06:58)
== END 2019-06-25 08:07 | disposition home or self-care (01) ==
LOC: 8 EST LDRP 04:01
PROVIDERS: ADMIT Obstetrics & Gynecology; ATTEND Obstetrics & Gynecology
DX: O26.893 Other specified pregnancy related conditions, third trimester (principal); R10.30 Lower abdominal pain, unspecified; M54.9 Dorsalgia, unspecified; Z3A.37 37 weeks gestation of pregnancy
CPT/HCPCS: 81003; 96372; 99281; G0378; J3105; 96360; 96361

== ENCOUNTER 2019-10-18 00:40 | Emergency (ER) | payer MEDICAID ==
[~2019-10-18] VITALS: Ht 167.6 cm; Wt 60.0 kg
[~2019-10-18 00:40] MED LIST changes: +FERR-71 MT
[2019-10-18 02:12] LABS: CLARITY URINE CLOUDY (CLEAR); COLOR URINE YELLOW (YELLOW); KETONES URINE NEGATIVE (NEGATIVE); LEUKOCYTE ESTERASE URINE 2+ (NEGATIVE); NITRITE URINE NEGATIVE (NEGATIVE); OCCULT BLOOD URINE 2+ (NEGATIVE); PH URINE 5.5 (4.5-8.0); PROTEIN URINE 1+ (NEGATIVE); SPECIFIC GRAVITY URINE 1.016 (1.005-1.030); UROBILINOGEN URINE 0.2 E.U./dL (0.2-1.0)
[2019-10-18] MEDS ORDERED: SULFAMETHOXAZOLE/TRIMETHOPRIM 800/160MG TABLET PO ONE (03:45)
[2019-10-18] MEDS ORDERED: ACETAMINOPHEN WITH CODEINE 300/30MG TABLET PO ONE (03:45)
[2019-10-18 04:05] VITALS: BP 140/93
== END 2019-10-18 04:46 | disposition home or self-care (01) ==
LOC: ER 00:40
DX: N30.91 Cystitis, unspecified with hematuria (principal); R03.0 Elevated blood-pressure reading, without diagnosis of hypertension
CPT/HCPCS: 81003; 81025; 87077; 87186; 99283

== ENCOUNTER 2019-12-17 08:07 | Emergency (ER) | payer MEDICAID ==
[~2019-12-17] VITALS: Ht 167.6 cm; Wt 57.9 kg
[2019-12-17 08:13] VITALS: BP 146/86
[2019-12-17] MEDS ORDERED: TRAMADOL 50MG TABLET PO ONE (08:45)
== END 2019-12-17 09:11 | disposition home or self-care (01) ==
LOC: ER 08:07
DX: S69.92XA Unspecified injury of left wrist, hand and finger(s), initial encounter (principal); J45.909 Unspecified asthma, uncomplicated; Z91.018 Allergy to other foods; Z88.0 Allergy status to penicillin; Z79.899 Other long term (current) drug therapy; X58.XXXA Exposure to other specified factors, initial encounter; Y93.89 Activity, other specified; Y92.89 Other specified places as the place of occurrence of the external cause; Y99.8 Other external cause status
CPT/HCPCS: 29130; 73110; 73130; 81025; 99284

== ENCOUNTER 2020-01-12 03:23 | Inpatient (IN) | payer MEDICAID, OTHER ==
[~2020-01-12] VITALS: Ht 165.1 cm; Wt 54.9 kg
[2020-01-12] MEDS ORDERED: SODIUM CHLORIDE 0.9% 1,000 ML IV ONE ×2 (04:16→05:46)
[2020-01-12 04:46] LABS: BASOPHILS % 0.8 % (0.0-2.0); EOSINOPHILS % 1.2 % (0.0-5.0); HEMATOCRIT. 37.3 % (36.0-48.0); HEMOGLOBIN. 12.5 g/dL (12.0-16.0); LYMPHOCYTES % 41.8 % (20.0-50.0); MEAN CORPUSCULAR HEMOGLOBIN 29.4 pg (28.0-32.0); MEAN PLATELET VOLUME 7.8 fl (7.4-10.4); MONOCYTES % 10.9 % (2.0-8.0); NEUTROPHILS % 45.3 % (40.0-76.0); PLATELET 287 x1000/uL (130-400); RED BLOOD CELL COUNT 4.24 mill/uL (4.2-5.4); RED CELL DISTRIBUTION WIDTH 15.2 % (11.6-14.6)
[2020-01-12 04:57] LABS: CHLORIDE 109 mEq/L (98-107)
[2020-01-12 05:07] LABS: B-HCG QUANTITATIVE 253 mIU/mL (<3)
[2020-01-12] MEDS ORDERED: MORPHINE SULFATE 4 MG/ML CPJ (NOT FOR IM USE) IV ONE (06:30)
[2020-01-12] MEDS ORDERED: KETOROLAC 30MG/ML VIAL IV ONE (06:45)
[2020-01-12] MEDS ORDERED: ONDANSETRON HCL 4MG/2ML INJ IV ONE (07:00)
[2020-01-12] MEDS ORDERED: FENTANYL CITRATE/PF 50MCG/ML 2ML VIAL ONE ×2 (07:26→08:40)
[2020-01-12] MEDS ORDERED: MIDAZOLAM HCL 2 MG/2 ML VIAL ONE (07:27)
[2020-01-12] MEDS ORDERED: SUCCINYLCHOLINE CHLORIDE 200MG/10ML IV ONE (07:27)
[2020-01-12] MEDS ORDERED: TERBUTALINE SULFATE 1MG/ML VIAL ONE (07:27)
[2020-01-12] MEDS ORDERED: DEXAMETHASONE 4MG/ML 1ML VIAL ONE (07:27)
[2020-01-12] MEDS ORDERED: LIDOCAINE HCL/PF 1% 10 MG/ML 5ML VIAL ONE (07:27)
[2020-01-12] MEDS ORDERED: PROPOFOL 200MG/20ML VIAL IV ONE (07:27)
[2020-01-12] MEDS ORDERED: ROCURONIUM BROMIDE 10MG/ML VIAL 5ML IV ONE (07:32)
[2020-01-12] MEDS ORDERED: SODIUM CHLORIDE 0.9% 10ML VIAL ONE ×2 (07:49→08:34)
[2020-01-12] MEDS ORDERED: GLYCOPYRROLATE 0.2 MG/ML 2ML VIAL ONE (08:25)
[2020-01-12] MEDS ORDERED: NEOSTIGMINE METHYLSULFATE 1MG/ML 10 ML VIAL ONE (08:25)
[2020-01-12] MEDS ORDERED: HYDRALAZINE 20MG/ML VIAL ONE (08:34)
[2020-01-12] MEDS ORDERED: DEXT 5%/0.45% NACL KCL 20MEQ/L 1,000 ML IV SCH (08:42)
[2020-01-12] MEDS ORDERED: ACETAMINOPHEN 650MG SUPP PR PRN (08:45)
[2020-01-12] MEDS ORDERED: ONDANSETRON HCL 4MG/2ML INJ IV PRN (08:45)
[2020-01-12] MEDS ORDERED: MEPERIDINE HCL/PF 25MG/ML CPJ ONE (08:53)
[2020-01-12] MEDS: MEPERIDINE HCL/PF 25MG/ML CPJ IV PRN ×4 (09:00→10:51)
[2020-01-12 12:15] VITALS: BP 124/77
[2020-01-12] MEDS: MORPHINE SULFATE 4 MG/ML CPJ (NOT FOR IM USE) IV PRN ×2 (12:20→18:08)
[2020-01-12 12:55] VITALS: BP 136/74
[2020-01-12] MEDS: OXYCODONE HCL/ACETAMINOPHEN 5/325MG TABLET PO PRN ×2 (14:50→20:48)
[2020-01-12 16:00] VITALS: BP 130/83
[2020-01-12] MEDS: CEFAZOLIN 1000MG PREMIX 50 ML IV SCH ×2 (17:43→23:46)
[2020-01-12] MEDS: DOCUSATE SODIUM 100MG CAPSULE PO SCH (17:44)
[2020-01-12 20:00] VITALS: BP 142/77
[2020-01-13] VITALS: BP 127/74
[2020-01-13] MEDS: MORPHINE SULFATE 4 MG/ML CPJ (NOT FOR IM USE) IV PRN ×3 (00:37→14:35)
[2020-01-13] MEDS: OXYCODONE HCL/ACETAMINOPHEN 5/325MG TABLET PO PRN ×2 (03:54→10:57)
[2020-01-13 04:00] VITALS: BP 137/87
[2020-01-13] MEDS: DOCUSATE SODIUM 100MG CAPSULE PO SCH (08:01)
[2020-01-13 08:21] LABS: BASOPHILS % 0.4 % (0.0-2.0); EOSINOPHILS % 0.3 % (0.0-5.0); HEMOGLOBIN. 12.4 g/dL (12.0-16.0); LYMPHOCYTES % 32.6 % (20.0-50.0); MEAN CORPUSCULAR HEMOGLOBIN 29.3 pg (28.0-32.0); MEAN CORPUSCULAR VOLUME 87.6 fL (81.0-99.0); MEAN PLATELET VOLUME 8.3 fl (7.4-10.4); MONOCYTES % 8.1 % (2.0-8.0); NEUTROPHILS % 58.6 % (40.0-76.0); PLATELET 299 x1000/uL (130-400); RED BLOOD CELL COUNT 4.23 mill/uL (4.2-5.4); RED CELL DISTRIBUTION WIDTH 14.7 % (11.6-14.6)
[2020-01-13 08:38] LABS: CHLORIDE 105 mEq/L (98-107)
[2020-01-13] MEDS: CEFAZOLIN 1000MG PREMIX 50 ML IV SCH (09:00)
[2020-01-13 15:49] VITALS: BP 128/85
== END 2020-01-13 16:12 | disposition home or self-care (01) | DRG 545 ==
LOC: ER 03:23 → MICUSO 06:53 → 6EST 13:04
PROVIDERS: ADMIT Obstetrics & Gynecology; ATTEND Obstetrics & Gynecology
PROC: 0UB60ZZ Excision of Left Fallopian Tube, Open Approach (ICD-10-PCS; principal; 2020-01-12)
DX: O00.90 Unspecified ectopic pregnancy without intrauterine pregnancy (principal); D64.9 Anemia, unspecified; F10.21 Alcohol dependence, in remission; O99.511 Diseases of the respiratory system complicating pregnancy, first trimester; J45.909 Unspecified asthma, uncomplicated; O99.311 Alcohol use complicating pregnancy, first trimester; Z3A.01 Less than 8 weeks gestation of pregnancy; Z88.0 Allergy status to penicillin; Z91.02 Food additives allergy status; Z91.010 Allergy to peanuts; Z79.899 Other long term (current) drug therapy; O99.011 Anemia complicating pregnancy, first trimester
CPT/HCPCS: 36415; 76801; 80048; 80053; 84702; 85025; 86850; 86900; 88305; 99285; J0330; J0360; J0690; J1100; J1885; J2175; J2250; J2270; J2405; J2704; J2710; J3010; J3105; J3490; J7030

== ENCOUNTER 2021-07-04 06:48 | Emergency (ER) | payer MEDICAID, OTHER ==
[~2021-07-04] VITALS: Ht 167.6 cm; Wt 53.0 kg
[~2021-07-04 06:48] MED LIST changes: +IBUP-2029 MT; +TOPUD MT
[2021-07-04 08:45] LABS: CLARITY URINE CLEAR (CLEAR); COLOR URINE YELLOW (YELLOW); KETONES URINE NEGATIVE (NEGATIVE); LEUKOCYTE ESTERASE URINE NEGATIVE (NEGATIVE); NITRITE URINE NEGATIVE (NEGATIVE); OCCULT BLOOD URINE NEGATIVE (NEGATIVE); PH URINE 6.5 (4.5-8.0); PROTEIN URINE NEGATIVE (NEGATIVE); SPECIFIC GRAVITY URINE 1.009 (1.005-1.030); UROBILINOGEN URINE 0.2 E.U./dL (0.2-1.0)
[2021-07-04 10:24] LABS: BASOPHILS % 0.6 % (0.0-2.0); EOSINOPHILS % 0.6 % (0.0-5.0); HEMATOCRIT. 36.6 % (36.0-48.0); HEMOGLOBIN. 11.3 g/dL (12.0-16.0); LYMPHOCYTES % 30.8 % (20.0-50.0); MEAN CORPUSCULAR HEMOGLOBIN 22.5 pg (28.0-32.0); MEAN CORPUSCULAR VOLUME 72.9 fL (81.0-99.0); MEAN PLATELET VOLUME 7.2 fl (7.4-10.4); PLATELET 387 x1000/uL (130-400); RED BLOOD CELL COUNT 5.02 mill/uL (4.2-5.4); RED CELL DISTRIBUTION WIDTH 19.3 % (11.6-14.6)
[2021-07-04 10:32] LABS: CHLORIDE 108 mEq/L (98-107)
[2021-07-04 10:45] LABS: B-HCG QUANTITATIVE 251 mIU/mL (<3)
[2021-07-04 11:42] VITALS: BP 118/68
== END 2021-07-04 11:48 | disposition home or self-care (01) ==
LOC: ER 07:31
DX: O26.891 Other specified pregnancy related conditions, first trimester (principal); N83.201 Unspecified ovarian cyst, right side; Z3A.01 Less than 8 weeks gestation of pregnancy; O09.11 Supervision of pregnancy with history of ectopic pregnancy, first trimester; J45.909 Unspecified asthma, uncomplicated; Z88.0 Allergy status to penicillin; Z90.79 Acquired absence of other genital organ(s)
CPT/HCPCS: 36415; 76830; 76856; 80053; 81003; 81025; 84702; 85025; 86850; 86900; 99284

== ENCOUNTER 2021-11-01 10:08 | Observation (INO) | payer MEDICAID ==
[~2021-11-01] VITALS: Ht 167.6 cm; Wt 59.0 kg
[2021-11-01] MEDS ORDERED: ONDANSETRON HCL 4MG TABLET PO NR (11:05)
== END 2021-11-01 11:25 | disposition home or self-care (01) ==
LOC: 8EST NSY 10:08 → 8 EST A/PP 10:27
PROVIDERS: ADMIT Obstetrics & Gynecology; ATTEND Obstetrics & Gynecology
DX: O26.892 Other specified pregnancy related conditions, second trimester (principal); K59.00 Constipation, unspecified; R11.0 Nausea; Z3A.22 22 weeks gestation of pregnancy
CPT/HCPCS: 59025; G0378; Q0162; 99281; G0379

== ENCOUNTER 2022-01-22 23:09 | Observation (INO) | payer MEDICAID ==
[~2022-01-22] VITALS: Ht 167.6 cm; Wt 64.4 kg
[2022-01-23] MEDS ORDERED: LACTATED RINGERS 1,000 ML IV SCH (00:45)
[2022-01-23 01:45] LABS: BASOPHILS % 0.5 % (0.0-2.0); EOSINOPHILS % 0.6 % (0.0-5.0); HEMATOCRIT. 31.1 % (36.0-48.0); HEMOGLOBIN. 10.5 g/dL (12.0-16.0); LYMPHOCYTES % 26.3 % (20.0-50.0); MEAN CORPUSCULAR HEMOGLOBIN 29.8 pg (28.0-32.0); MEAN CORPUSCULAR VOLUME 88.1 fL (81.0-99.0); MEAN PLATELET VOLUME 7.3 fl (7.4-10.4); MONOCYTES % 8.9 % (2.0-8.0); NEUTROPHILS % 63.7 % (40.0-76.0); PLATELET 283 x1000/uL (130-400); RED BLOOD CELL COUNT 3.53 mill/uL (4.2-5.4); RED CELL DISTRIBUTION WIDTH 15.3 % (11.6-14.6)
[2022-01-23 01:45] LABS: CLARITY URINE CLEAR (CLEAR); COLOR URINE YELLOW (YELLOW); KETONES URINE 4+ (NEGATIVE); LEUKOCYTE ESTERASE URINE TRACE (NEGATIVE); NITRITE URINE NEGATIVE (NEGATIVE); OCCULT BLOOD URINE NEGATIVE (NEGATIVE); PH URINE 6.5 (4.5-8.0); PROTEIN URINE TRACE (NEGATIVE); SPECIFIC GRAVITY URINE 1.027 (1.005-1.030)
[2022-01-23 01:53] LABS: CHLORIDE 106 mEq/L (98-107)
[2022-01-23] MEDS ORDERED: ONDA4TAB11 PO (02:29)
== END 2022-01-23 03:15 | disposition home or self-care (01) ==
LOC: ER 23:09 → 8 EST LDRP 23:38
PROVIDERS: ADMIT Obstetrics & Gynecology; ATTEND Obstetrics & Gynecology
DX: O26.893 Other specified pregnancy related conditions, third trimester (principal); R42 Dizziness and giddiness; H53.8 Other visual disturbances; R10.13 Epigastric pain; R51.9 Headache, unspecified; O62.9 Abnormality of forces of labor, unspecified; O21.2 Late vomiting of pregnancy; Z3A.35 35 weeks gestation of pregnancy
CPT/HCPCS: 36415; 80053; 81003; 85025; 96360; 96361; G0378; J7120; 99281

== ENCOUNTER 2022-03-10 07:27 | Inpatient (IN) | payer MEDICAID, OTHER ==
[~2022-03-10] VITALS: Ht 167.6 cm; Wt 64.9 kg
[~2022-03-10 07:27] MED LIST changes: +ONDA4TAB11 PO
[2022-03-10] MEDS ORDERED: RHO(D) IMMUNE GLOBULIN 300 MCG/SYR IM SCH (09:15)
[2022-03-10 09:58] LABS: BASOPHILS % 0.4 % (0.0-2.0); EOSINOPHILS % 0.7 % (0.0-5.0); HEMATOCRIT. 30.6 % (36.0-48.0); HEMOGLOBIN. 10.3 g/dL (12.0-16.0); LYMPHOCYTES % 29.7 % (20.0-50.0); MEAN CORPUSCULAR VOLUME 86.4 fL (81.0-99.0); MEAN PLATELET VOLUME 7.2 fl (7.4-10.4); MONOCYTES % 10.4 % (2.0-8.0); NEUTROPHILS % 58.8 % (40.0-76.0); PLATELET 251 x1000/uL (130-400); RED BLOOD CELL COUNT 3.54 mill/uL (4.2-5.4); RED CELL DISTRIBUTION WIDTH 14.4 % (11.6-14.6)
[2022-03-10 09:59] LABS: CLARITY URINE CLEAR (CLEAR); COLOR URINE YELLOW (YELLOW); KETONES URINE NEGATIVE (NEGATIVE); LEUKOCYTE ESTERASE URINE 2+ (NEGATIVE); NITRITE URINE NEGATIVE (NEGATIVE); OCCULT BLOOD URINE NEGATIVE (NEGATIVE); PROTEIN URINE NEGATIVE (NEGATIVE); UROBILINOGEN URINE 0.2 E.U./dL (0.2-1.0)
[2022-03-10 10:13] LABS: PARTIAL THROMBOPLASTIN TIME 25.9 sec (23.4-31.0); PROTHROMBIN TIME 10.6 sec (9.6-11.0)
[2022-03-10 10:16] LABS: *AMPHETAMINES SCREEN URINE NEGATIVE (NEGATIVE); *BARBITURATES SCREEN URINE NEGATIVE (NEGATIVE); *BENZODIAZEPINES SCREEN URINE NEGATIVE (NEGATIVE); *COCAINE SCREEN URINE NEGATIVE (NEGATIVE); METHADONE URINE SCREEN NEGATIVE (NEGATIVE); OPIATES URINE SCREEN NEGATIVE (NEGATIVE); PHENCYCLIDINE URINE SCREEN NEGATIVE (NEGATIVE)
[2022-03-10 10:18] LABS: CANNABINOID URINE SCREEN PRESUMTIVE POSITIVE (NEGATIVE)
[2022-03-10] MEDS ORDERED: LIDOCAINE HCL 1% 20ML VIAL (Pyxis) INJ INFIL SCH (11:00)
[2022-03-10] MEDS ORDERED: NALOXONE HCL 0.4 MG/ML 1ML VIAL IM PRN (11:00)
[2022-03-10] MEDS ORDERED: OXYTOCIN 30 UNITS/500ML NS PMX 500 ML IV SCH ×2 (11:00→21:00)
[2022-03-10] MEDS ORDERED: RHO(D) IMMUNE GLOBULIN 300 MCG/SYR IM ONE (11:00)
[2022-03-10] MEDS ORDERED: BUTORPHANOL TARTRATE 2 MG/ML VIAL IV PRN (11:00)
[2022-03-10] MEDS ORDERED: DEXT 5%/LACTATED RINGERS 1,000 ML IV SCH (11:00)
[2022-03-10] MEDS ORDERED: CARBOPROST TROMETHAMINE 250 MCG/ML AMPUL IM PRN (11:00)
[2022-03-10] MEDS ORDERED: METHYLERGONOVINE MALEATE 0.2 MG/ML IM PRN (11:00)
[2022-03-10] MEDS ORDERED: MISOPROSTOL 100MCG TABLET VG SCH (11:00)
[2022-03-10] MEDS: LACTATED RINGERS 1,000 ML IV SCH ×2 (12:20→15:50)
[2022-03-10 13:15] LABS: HEPATITIS B SURFACE ANTIGEN NEGATIVE
[2022-03-10 20:00] VITALS: BP 105/64
[2022-03-10] MEDS ORDERED: HEMORRHOIDAL SUPP PR PRN (20:45)
[2022-03-10] MEDS ORDERED: GLYCERIN/WITCH HAZEL LEAF MEDICATED PAD TOP PRN (20:45)
[2022-03-10] MEDS ORDERED: RHO(D) IMMUNE GLOBULIN 300 MCG/SYR IM PRN (20:45)
[2022-03-10] MEDS ORDERED: LANOLIN OINT 7GM TUBE TOP PRN (20:45)
[2022-03-10] MEDS ORDERED: BISACODYL 10MG SUPP PR PRN (20:45)
[2022-03-10] MEDS ORDERED: BENZOCAINE/LANOLIN/ALOE VERA SPRAY TOP PRN (20:45)
[2022-03-10] MEDS ORDERED: IBUPROFEN 400MG TABLET PO PRN (20:45)
[2022-03-10] MEDS ORDERED: DIPHENHYDRAMINE 25MG CAPSULE PO PRN (20:45)
[2022-03-10 21:00] VITALS: BP 105/64
[2022-03-10] MEDS ORDERED: DOCUSATE SODIUM 100MG CAPSULE PO SCH (21:00)
[2022-03-10] MEDS ORDERED: MAGNESIUM/ALUMINUM HYDROXIDE/SIMETHICONE 30ML UDC PO SCH (21:00)
[2022-03-10] MEDS ORDERED: SIMETHICONE 80MG TABLET CHEW PO SCH (21:00)
[2022-03-10] MEDS: ACETAMINOPHEN WITH CODEINE 300/30MG TABLET PO PRN (22:23)
[2022-03-11] MEDS: IBUPROFEN 800MG TABLET PO PRN ×2 (02:36→09:36)
[2022-03-11 04:19] VITALS: BP 129/80
[2022-03-11] MEDS: ACETAMINOPHEN WITH CODEINE 300/30MG TABLET PO PRN ×2 (06:54→12:07)
[2022-03-11] MEDS ORDERED: FERROUS SULFATE 325MG TABLET PO SCH (07:30)
[2022-03-11 08:00] VITALS: BP 122/83
[2022-03-11 08:19] LABS: BASOPHILS % 0.3 % (0.0-2.0); EOSINOPHILS % 0.1 % (0.0-5.0); HEMATOCRIT. 29.6 % (36.0-48.0); HEMOGLOBIN. 9.8 g/dL (12.0-16.0); LYMPHOCYTES % 16.4 % (20.0-50.0); MEAN CORPUSCULAR HEMOGLOBIN 28.3 pg (28.0-32.0); MEAN CORPUSCULAR VOLUME 85.4 fL (81.0-99.0); MEAN PLATELET VOLUME 7.2 fl (7.4-10.4); NEUTROPHILS % 76.2 % (40.0-76.0); PLATELET 233 x1000/uL (130-400); RED BLOOD CELL COUNT 3.46 mill/uL (4.2-5.4); RED CELL DISTRIBUTION WIDTH 14.7 % (11.6-14.6)
[2022-03-11] MEDS ORDERED: PRENATAL VIT/FE FUMARATE/FA TABLET PO SCH (09:00)
[2022-03-11 12:07] VITALS: BP 122/83
[2022-03-16 06:07] LABS: CANNABINOID CONFIRMATION URINE Positive (.)
== END 2022-03-11 14:05 | disposition left against medical advice (07) | DRG 560 ==
LOC: OBSVTOIN 07:27 → 8 EST LDRP 07:27 → 8EST 21:53
PROVIDERS: ADMIT Obstetrics & Gynecology; ATTEND Obstetrics & Gynecology
PROC: 10E0XZZ Delivery of Products of Conception, External Approach (ICD-10-PCS; principal; 2022-03-11)
DX: O69.81X0 Labor and delivery complicated by cord around neck, without compression, not applicable or unspecified (principal); Z37.0 Single live birth; Z20.822 Contact with and (suspected) exposure to COVID-19; Z3A.39 39 weeks gestation of pregnancy; Z88.0 Allergy status to penicillin; Z91.018 Allergy to other foods; Z53.29 Procedure and treatment not carried out because of patient's decision for other reasons
CPT/HCPCS: 36415; 76805; 76818; 80305; 80349; 81003; 85025; 86592; 86703; 86762; 86850; 86900; 87340; 87426; 99281; J0595; J3490; J7120; J7121; A4315; J2590

== ENCOUNTER 2022-09-05 10:44 | Emergency (ER) | payer OTHER ==
[~2022-09-05] VITALS: Ht 167.6 cm; Wt 75.0 kg
[2022-09-05 11:13] VITALS: BP 116/77
[2022-09-05 16:03] LABS: CLARITY URINE CLOUDY (CLEAR); COLOR URINE DARK YELLOW (YELLOW); KETONES URINE TRACE (NEGATIVE); LEUKOCYTE ESTERASE URINE TRACE (NEGATIVE); NITRITE URINE NEGATIVE (NEGATIVE); OCCULT BLOOD URINE NEGATIVE (NEGATIVE); PROTEIN URINE TRACE (NEGATIVE); SPECIFIC GRAVITY URINE 1.033 (1.005-1.030)
[2022-09-05 17:51] LABS: BASOPHILS % 0.4 % (0.0-2.0); EOSINOPHILS % 0.9 % (0.0-5.0); HEMATOCRIT. 37.8 % (36.0-48.0); HEMOGLOBIN. 12.7 g/dL (12.0-16.0); LYMPHOCYTES % 40.8 % (20.0-50.0); MEAN CORPUSCULAR VOLUME 89.4 fL (81.0-99.0); MEAN PLATELET VOLUME 6.8 fl (7.4-10.4); MONOCYTES % 9.7 % (2.0-8.0); NEUTROPHILS % 48.2 % (40.0-76.0); PLATELET 345 x1000/uL (130-400); RED BLOOD CELL COUNT 4.23 mill/uL (4.2-5.4); RED CELL DISTRIBUTION WIDTH 13.6 % (11.6-14.6)
[2022-09-05 17:57] LABS: CHLORIDE 103 mEq/L (98-107)
[2022-09-05] MEDS ORDERED: TOPUD MT (17:59)
[2022-09-05 18:20] LABS: B-HCG QUANTITATIVE 68919 mIU/mL (<3)
== END 2022-09-05 18:43 | disposition home or self-care (01) ==
LOC: ER 10:44
DX: O26.891 Other specified pregnancy related conditions, first trimester (principal); R10.30 Lower abdominal pain, unspecified; K59.00 Constipation, unspecified; O34.11 Maternal care for benign tumor of corpus uteri, first trimester; D25.9 Leiomyoma of uterus, unspecified; O34.81 Maternal care for other abnormalities of pelvic organs, first trimester; N83.201 Unspecified ovarian cyst, right side; O20.8 Other hemorrhage in early pregnancy; Z3A.01 Less than 8 weeks gestation of pregnancy
CPT/HCPCS: 36415; 76801; 80053; 81003; 81025; 84702; 85025; 99284

== ENCOUNTER 2022-09-07 01:57 | Emergency (ER) | payer MEDICAID, OTHER ==
[~2022-09-07] VITALS: Ht 165.1 cm; Wt 52.0 kg
[~2022-09-07 01:57] MED LIST changes: -ALBU25PO2; -FERR-71 MT; -IBUP-2029 MT; -ONDA4TAB11 PO; -PNV1TABL76 MT
[2022-09-07] MEDS ORDERED: BUTORPHANOL TARTRATE 2 MG/ML VIAL IM ONE (03:00)
[2022-09-07] MEDS ORDERED: SODIUM CHLORIDE 0.9% 1,000 ML IV ONE (03:00)
[2022-09-07] MEDS ORDERED: ONDANSETRON HCL 4MG/2ML INJ IV ONE (03:15)
[2022-09-07 03:32] LABS: BASOPHILS % 0.6 % (0.0-2.0); EOSINOPHILS % 0.5 % (0.0-5.0); HEMATOCRIT. 37.8 % (36.0-48.0); HEMOGLOBIN. 12.6 g/dL (12.0-16.0); LYMPHOCYTES % 22.4 % (20.0-50.0); MEAN CORPUSCULAR HEMOGLOBIN 29.8 pg (28.0-32.0); MEAN CORPUSCULAR VOLUME 89.2 fL (81.0-99.0); MEAN PLATELET VOLUME 7.1 fl (7.4-10.4); MONOCYTES % 5.7 % (2.0-8.0); NEUTROPHILS % 70.8 % (40.0-76.0); PLATELET 370 x1000/uL (130-400); RED BLOOD CELL COUNT 4.23 mill/uL (4.2-5.4); RED CELL DISTRIBUTION WIDTH 13.9 % (11.6-14.6)
[2022-09-07 03:38] LABS: CHLORIDE 106 mEq/L (98-107)
[2022-09-07 04:00] LABS: B-HCG QUANTITATIVE 81235 mIU/mL (<3)
[2022-09-07] MEDS ORDERED: ACETAMINOPHEN 325MG TABLET PO NR (06:00)
[2022-09-07 06:36] LABS: CLARITY URINE CLEAR (CLEAR); COLOR URINE YELLOW (YELLOW); KETONES URINE NEGATIVE (NEGATIVE); LEUKOCYTE ESTERASE URINE NEGATIVE (NEGATIVE); NITRITE URINE NEGATIVE (NEGATIVE); OCCULT BLOOD URINE NEGATIVE (NEGATIVE); PROTEIN URINE NEGATIVE (NEGATIVE); SPECIFIC GRAVITY URINE 1.007 (1.005-1.030); UROBILINOGEN URINE 0.2 E.U./dL (0.2-1.0)
[2022-09-07 06:50] LABS: *AMPHETAMINES SCREEN URINE NEGATIVE (NEGATIVE); *BARBITURATES SCREEN URINE NEGATIVE (NEGATIVE); *BENZODIAZEPINES SCREEN URINE NEGATIVE (NEGATIVE); *COCAINE SCREEN URINE NEGATIVE (NEGATIVE); METHADONE URINE SCREEN NEGATIVE (NEGATIVE); PHENCYCLIDINE URINE SCREEN NEGATIVE (NEGATIVE)
[2022-09-07 06:51] LABS: CANNABINOID URINE SCREEN PRESUMTIVE POSITIVE (NEGATIVE); OPIATES URINE SCREEN PRESUMTIVE POSITIVE (NEGATIVE)
[2022-09-07] MEDS ORDERED: ACET-2708 MT (06:51)
[2022-09-07] MEDS ORDERED: DOCU-138 MT (10:21)
[2022-09-07 10:25] VITALS: BP 131/78
== END 2022-09-07 10:25 | disposition home or self-care (01) ==
LOC: ER 01:57
DX: O20.8 Other hemorrhage in early pregnancy (principal); O34.11 Maternal care for benign tumor of corpus uteri, first trimester; D25.9 Leiomyoma of uterus, unspecified; K42.9 Umbilical hernia without obstruction or gangrene; O34.81 Maternal care for other abnormalities of pelvic organs, first trimester; N83.201 Unspecified ovarian cyst, right side; Z3A.08 8 weeks gestation of pregnancy; Z88.0 Allergy status to penicillin; Z91.018 Allergy to other foods
CPT/HCPCS: 36415; 76801; 76817; 76857; 80053; 80305; 81003; 84702; 85025; 86850; 86900; 86901; 96361; 96372; 96374; 99285; J0595; J2405

== ENCOUNTER 2022-10-07 13:11 | Emergency (ER) | payer OTHER ==
[~2022-10-07] VITALS: Ht 162.6 cm; Wt 74.0 kg
[~2022-10-07 13:11] MED LIST changes: +ACET-2708 MT; +DOCU-138 MT
[2022-10-07 13:54] VITALS: BP 115/78
[2022-10-07] MEDS ORDERED: TETANUS, DIPHTHERIA, PERTUSSIS VAC/PF 0.5ML (>10YR OLD) IM ONE (17:30)
[2022-10-07] MEDS ORDERED: ACETAMINOPHEN 325MG TABLET PO ONE (20:00)
[2022-10-07] MEDS ORDERED: CLIN-194 MT (20:02)
== END 2022-10-07 20:30 | disposition home or self-care (01) ==
LOC: ER 13:11
DX: S40.271A Other superficial bite of right shoulder, initial encounter (principal); S60.371A Other superficial bite of right thumb, initial encounter; Y04.1XXA Assault by human bite, initial encounter; Y93.89 Activity, other specified; Y92.89 Other specified places as the place of occurrence of the external cause
CPT/HCPCS: 73130; 90471; 90715; 99283

== ENCOUNTER 2023-02-03 19:49 | Observation (INO) | payer OTHER ==
[~2023-02-03] VITALS: Ht 157.5 cm; Wt 59.9 kg
[~2023-02-03 19:49] MED LIST changes: +CLIN-194 MT
[2023-02-03] MEDS: LACTATED RINGERS 1,000 ML IV SCH (21:30)
[2023-02-03 21:44] LABS: CLARITY URINE CLEAR (CLEAR); COLOR URINE YELLOW (YELLOW); KETONES URINE 3+ (NEGATIVE); LEUKOCYTE ESTERASE URINE NEGATIVE (NEGATIVE); NITRITE URINE NEGATIVE (NEGATIVE); OCCULT BLOOD URINE NEGATIVE (NEGATIVE); PROTEIN URINE NEGATIVE (NEGATIVE); SPECIFIC GRAVITY URINE 1.013 (1.005-1.030)
[2023-02-03] MEDS ORDERED: TERBUTALINE SULFATE 1MG/ML VIAL SUBCUT ONE (23:45)
[2023-02-04] MEDS ORDERED: BETAMETHASONE ACET/BETAMET 30 MG/5 ML VIAL IM ONE (00:15)
[2023-02-04] MEDS: ACETAMINOPHEN WITH CODEINE 300/30MG TABLET PO PRN ×2 (00:16→05:51)
[2023-02-04] MEDS ORDERED: ZOLPIDEM TARTRATE 5MG TABLET PO PRN (01:30)
[2023-02-04] MEDS: LACTATED RINGERS 1,000 ML IV SCH (03:44)
[2023-02-04 05:51] VITALS: RESP 18
[2023-02-04 11:18] LABS: *AMPHETAMINES SCREEN URINE NEGATIVE (NEGATIVE); *BARBITURATES SCREEN URINE NEGATIVE (NEGATIVE); *BENZODIAZEPINES SCREEN URINE NEGATIVE (NEGATIVE); *COCAINE SCREEN URINE NEGATIVE (NEGATIVE); METHADONE URINE SCREEN NEGATIVE (NEGATIVE); OPIATES URINE SCREEN NEGATIVE (NEGATIVE); PHENCYCLIDINE URINE SCREEN NEGATIVE (NEGATIVE)
[2023-02-04 11:22] LABS: CANNABINOID URINE SCREEN PRESUMTIVE POSITIVE (NEGATIVE)
[2023-02-10 07:07] LABS: CANNABINOID CONFIRMATION URINE Positive (.)
== END 2023-02-04 08:43 | disposition home or self-care (01) ==
LOC: 8 EST LDRP 19:49
PROVIDERS: ADMIT Obstetrics & Gynecology; ATTEND Obstetrics & Gynecology
DX: O62.9 Abnormality of forces of labor, unspecified (principal); Z3A.31 31 weeks gestation of pregnancy; Z79.899 Other long term (current) drug therapy
CPT/HCPCS: 59025; 96360; 96361 ×2; 81003; 82731; 76818; 76805; 96372; 80305; 80349; J3105; G0378 ×3; J0702; J7120; 99281

== ENCOUNTER 2024-10-19 15:24 | Emergency (ER) | payer OTHER ==
[~2024-10-19] VITALS: Ht 172.7 cm; Wt 71.0 kg
[2024-10-19 15:29] VITALS: O2SAT 97
[2024-10-19] MEDS: ONDANSETRON HCL 4MG/2ML INJ IV STA (15:57)
[2024-10-19] MEDS: MAGNESIUM/ALUMINUM HYDROXIDE/SIMETHICONE 30ML UDC PO STA (15:57)
[2024-10-19] MEDS: ACETAMINOPHEN 325MG TABLET PO STA (15:57)
[2024-10-19 16:25] LABS: BASOPHILS % 0.7 % (0.0-2.0); EOSINOPHILS % 0.1 % (0.0-5.0); HEMATOCRIT. 40.2 % (36.0-48.0); LYMPHOCYTES % 43.9 % (20.0-50.0); MEAN CORPUSCULAR HEMOGLOBIN 29.3 pg (28.0-32.0); MEAN CORPUSCULAR HGB CONC 32.3 g/dL (31.0-37.0); MEAN CORPUSCULAR VOLUME 90.6 fL (81.0-99.0); MEAN PLATELET VOLUME 8.2 fl (7.4-10.4); MONOCYTES % 12.1 % (2.0-8.0); NEUTROPHILS % 43.2 % (40.0-76.0); PLATELET 168 x1000/uL (130-400); RED BLOOD CELL COUNT 4.43 mill/uL (4.2-5.4); RED CELL DISTRIBUTION WIDTH 14.2 % (11.6-14.6); WHITE BLOOD COUNT 2.3 x1000/uL (4.5-11.0)
[2024-10-19 16:32] LABS: CHLORIDE 105 mEq/L (98-107); POTASSIUM 2.9 mEq/L (3.5-5.1); SODIUM 139 mEq/L (136-145)
[2024-10-19 16:33] LABS: CARBON DIOXIDE 22 mEq/L (21-32)
[2024-10-19 16:34] LABS: CALCIUM 8.7 mg/dL (8.7-10.4)
[2024-10-19 16:37] LABS: HCG SCREEN NEGATIVE
[2024-10-19 16:38] LABS: CREATININE 0.7 mg/dL (0.6-1.0); GLUCOSE 93 mg/dL (70-105); UREA NITROGEN BLOOD 5 mg/dL (9-23)
[2024-10-19 16:39] LABS: INR 1.1; PROTHROMBIN TIME 11.4 sec (9.6-11.0)
[2024-10-19 16:40] LABS: ALANINE AMINOTRANSFERASE < 7 IU/L (10-49); ALBUMIN 4.1 g/dL (3.2-4.8); ASPARTATE AMINOTRANSFERASE 25 IU/L (<34)
[2024-10-19 16:41] LABS: BILIRUBIN TOTAL 0.3 mg/dL (0.1-1.0); PROTEIN TOTAL 6.8 g/dL (6.0-8.3)
[2024-10-19 17:11] LABS: BILIRUBIN DIRECT < 0.1 mg/dL (<=3.0); ETHANOL BLOOD < 10 mg/dL (<10); TROPONIN I HIGH SENSITIVITY < 4 ng/L (3.0-34)
[2024-10-19] MEDS: KETOROLAC 15MG/ML VIAL IV ONE (17:23)
[2024-10-19 17:53] VITALS: BP 123/82; PULSE 78; RESP 15; TEMP 36.9; O2SAT 99
[2024-10-19] MEDS ORDERED: ONDA-239 PO (18:00)
[2024-10-19] MEDS: POTASSIUM CHLORIDE 20MEQ/PACKET PO ONE (18:22)
== END 2024-10-19 18:34 | disposition home or self-care (01) ==
LOC: ER 15:24
DX: R10.32 Left lower quadrant pain (principal); E87.6 Hypokalemia; J45.909 Unspecified asthma, uncomplicated; R41.82 Altered mental status, unspecified; Z79.899 Other long term (current) drug therapy; Z88.0 Allergy status to penicillin
CPT/HCPCS: 80076; 80048; 80320; 84703; 83690; 85025; 85610; 84484; 36415; 71045; 70450; 74176; 93005; 96374; 96375; 99285; J1885; J2405; G0480

== ENCOUNTER 2024-12-18 17:20 | Emergency (ER) | payer OTHER ==
[~2024-12-18] VITALS: Ht 165.1 cm; Wt 51.0 kg
[~2024-12-18 17:20] MED LIST changes: +ONDA-239 PO
[2024-12-18] MEDS: HALOPERIDOL LACTATE 5MG/ML VIAL IM ONE (17:30)
[2024-12-18] MEDS: OLANZAPINE 10 MG/VIAL IM ONE (18:04)
[2024-12-18 18:09] LABS: BASOPHILS % 0.8 % (0.0-2.0); EOSINOPHILS % 1.8 % (0.0-5.0); HEMATOCRIT. 42.2 % (36.0-48.0); HEMOGLOBIN. 13.9 g/dL (12.0-16.0); LYMPHOCYTES % 58.4 % (20.0-50.0); MEAN CORPUSCULAR HEMOGLOBIN 28.4 pg (28.0-32.0); MEAN CORPUSCULAR HGB CONC 32.8 g/dL (31.0-37.0); MEAN CORPUSCULAR VOLUME 86.4 fL (81.0-99.0); MEAN PLATELET VOLUME 7.3 fl (7.4-10.4); MONOCYTES % 5.9 % (2.0-8.0); NEUTROPHILS % 33.1 % (40.0-76.0); PLATELET 367 x1000/uL (130-400); RED BLOOD CELL COUNT 4.89 mill/uL (4.2-5.4); WHITE BLOOD COUNT 4.4 x1000/uL (4.5-11.0)
[2024-12-18 18:19] LABS: CHLORIDE 108 mEq/L (98-107); POTASSIUM 3.3 mEq/L (3.5-5.1); SODIUM 145 mEq/L (136-145)
[2024-12-18 18:20] LABS: CALCIUM 9.6 mg/dL (8.7-10.4); CARBON DIOXIDE 22 mEq/L (21-32)
[2024-12-18 18:25] LABS: CREATININE 0.8 mg/dL (0.6-1.0); GLUCOSE 96 mg/dL (70-105); UREA NITROGEN BLOOD 8 mg/dL (9-23)
[2024-12-18 18:26] LABS: ETHANOL BLOOD 203 mg/dL (<10); HCG SCREEN NEGATIVE
[2024-12-18 18:27] LABS: ACETAMINOPHEN < 2 ug/mL (10-30); CREATINE KINASE 137 IU/L (34-145)
[2024-12-18 18:28] LABS: AMMONIA 38 uMol/L (<32)
[2024-12-18 21:30] VITALS: O2SAT 99
[2024-12-18] MEDS: ACETAMINOPHEN 325MG TABLET PO ONE (22:16)
[2024-12-18 22:52] LABS: CLARITY URINE CLOUDY (CLEAR); COLOR URINE YELLOW (YELLOW); GLUCOSE URINE NEGATIVE (NEGATIVE); KETONES URINE NEGATIVE (NEGATIVE); LEUKOCYTE ESTERASE URINE 1+ (NEGATIVE); NITRITE URINE NEGATIVE (NEGATIVE); OCCULT BLOOD URINE 1+ (NEGATIVE); PROTEIN URINE NEGATIVE (NEGATIVE); SPECIFIC GRAVITY URINE 1.007 (1.005-1.030); UROBILINOGEN URINE 0.2 E.U./dL (0.2-1.0)
[2024-12-18 23:01] LABS: *AMPHETAMINES SCREEN URINE NEGATIVE (NEGATIVE); *BARBITURATES SCREEN URINE NEGATIVE (NEGATIVE); *BENZODIAZEPINES SCREEN URINE NEGATIVE (NEGATIVE); *COCAINE SCREEN URINE NEGATIVE (NEGATIVE); CANNABINOID URINE SCREEN PRESUMPTIVE POSITIVE (NEGATIVE); ECSTASY MDMA SCREEN URINE NEGATIVE (NEGATIVE); METHADONE URINE SCREEN NEGATIVE (NEGATIVE); OPIATES URINE SCREEN NEGATIVE (NEGATIVE); PHENCYCLIDINE URINE SCREEN NEGATIVE (NEGATIVE)
[2024-12-18 23:16] LABS: BACTERIA URINE TRACE; RBC URINE 0-2 /hpf (0-2); SQUAMOUS EPITHELIAL CELL URINE 2+ /lpf (RARE/1+)
[2024-12-19] MEDS ORDERED: NITR-87 MT (00:36)
[2024-12-19 02:48] VITALS: BP 107/72; PULSE 71; RESP 18; TEMP 36.8; O2SAT 98
== END 2024-12-19 03:03 | disposition home or self-care (01) ==
LOC: ER 17:20
DX: F10.129 Alcohol abuse with intoxication, unspecified (principal); N30.00 Acute cystitis without hematuria; J45.909 Unspecified asthma, uncomplicated; Z88.0 Allergy status to penicillin; Z79.899 Other long term (current) drug therapy; Y90.7 Blood alcohol level of 200-239 mg/100 ml
CPT/HCPCS: 80305; 80048; 81003; 80307; 80329; 80320; 82140; 82550; 84703; 85025; 36415; 96372; 99285; J3490; J1630; Z7610 ×2; G0480

== ENCOUNTER 2025-04-03 23:15 | Emergency (ER) | payer OTHER ==
[~2025-04-03] VITALS: Ht 167.6 cm; Wt 54.0 kg
[~2025-04-03 23:15] MED LIST changes: +NITR-87 MT
[2025-04-03 23:21] VITALS: BP 117/75; PULSE 79; RESP 16; TEMP 36.7; O2SAT 100
[2025-04-04] MEDS ORDERED: IBUPROFEN 600MG TABLET PO ONE (02:15)
== END 2025-04-04 02:20 | disposition left against medical advice (07) ==
LOC: ER 23:15
DX: L03.114 Cellulitis of left upper limb (principal); R07.89 Other chest pain; J45.909 Unspecified asthma, uncomplicated; F10.90 Alcohol use, unspecified, uncomplicated; Z88.0 Allergy status to penicillin; Y90.9 Presence of alcohol in blood, level not specified
CPT/HCPCS: 71045; 93005; 99283